=== PATIENT | female | born 1955 ===

== ENCOUNTER 2016-12-22 09:00 | Day surgery (SDC) | payer MEDICARE, OTHER ==
[2016-12-15 09:20] VITALS: BMI 23.4
[2016-12-22] MEDS ORDERED: Lactated Ringer's 1,000 ML IV ONE ×2 (09:50→13:30)
[2016-12-22] MEDS ORDERED: Propofol 10 mg/ml Inj (20 ML) ONE (11:26)
[2016-12-22] MEDS ORDERED: Rocuronium 10 mg/ml (5 ml) ONE (11:27)
[2016-12-22] MEDS ORDERED: Succinylcholine 200 mg/10 ml Inj IV ONE (11:27)
[2016-12-22] MEDS ORDERED: Midazolam 2 MG/2 ML VIAL ONE (11:27)
[2016-12-22] MEDS ORDERED: ePHEDrine 50 mg/ml Inj ONE (11:31)
[2016-12-22] MEDS ORDERED: Neostigmine Methylsulfate 2 MG/2 ML ML IV ONE (12:37)
[2016-12-22] MEDS ORDERED: Oxycodone/Acetaminophen 5/325 mg Tab PO PRN (13:26)
--- NOTE | 2016-12-22 13:26 | PCM.SURG1 ---
Surgeon's Initial Post Op Note - Surgeon's Notes Surgeon: Dr. Morris Alteration Specialist: Dr. Hayes PGY-2, Dr. Lincoln PGY-1, DPM Type of Anesthesia: General Endo Pre-Operative Diagnosis: Symptomatic cholelithiasis Operative Findings: Cholelithiasis Post-Operative Diagnosis: Symptomatic cholelithiasis Operation Performed: Laparoscopic cholecystectomy Specimen/Specimens Removed: gallbladder Estimated Blood Loss: EBL {In ML}: 20 Blood Products Given: N/A Drains Used: No Drains Post-Op Condition: Good Date of Surgery/Procedure: 12/22/16 Time of Surgery/Procedure: 13:25
[2016-12-22] MEDS: HYDROmorphone 0.5 mg/0.5 ml ISec IVP PRN ×4 (13:30→14:06)
--- NOTE | 2016-12-22 13:30 | CP.SDSHP ---
Same Day Surgery H & P - History Proposed Procedure: Laparoscopic cholecystectomy Pre-Op Diagnosis: Symptomatic cholelithiasis - Previous Medical/Surgical History Endocrine/Metabolic: Renal Disease Misc: Other (HIV, depression, anxiety) Previous Surgical History: left foot bunionectomy, left ear surgery - Allergies Allergies: Allergies aspirin Allergy (Verified 06/28/16 13:01) RASH - Physical Exam Vital Signs: Vital Signs 12/22/16 12/22/16 09:32 09:35 Temperature 97.9 F Pulse Rate 59 L 54 L Respiratory 20 Rate Blood Pressure 115/68 O2 Sat by Pulse 97 Oximetry Mental Status: Alert & Oriented x3 Neuro: WNL Heart: WNL Lungs: WNL GI: WNL - {Optional Preform as Required} Abdomen: WNL Integument: WNL - Impression Impression: Cholelithiasis Pt. Evaluated Today:Candidate for Anesthesia & Procedure: Yes - Date & Time Date: 12/22/16 Time: 11:00 Short Stay Discharge - Short Stay Discharge Admitting Diagnosis/Reason for Visit: K80.2 Disposition: HOME/ ROUTINE Referrals: Car Chan MD [Primary Care Provider] - Follow-up: Please follow up with Dr. Morris in 1 week, call to make appointment Instructions: Laparoscopic Cholecystectomy (DC) Additional Instructions (Diet, Activity): You may resume regular diet Avoid heavy lifting for 4 weeks You may shower 48 hours after your surgery but do not take a bath or swim You may remove band aids in 48 hours Leave steri strips in place, they will fall off on their own over time Please follow up with Dr. Morris, call to make appointment
[2016-12-22 14:31] VITALS: RESP 18
--- NOTE | 2016-12-22 15:02 | OP ---
PROCEDURE DATE: 12/22/2016 SURGEON: Dr. Morris. SEARCH MARKETING SPECIALIST: Dr. Hayes and Dr. Lincoln. ANESTHESIA: General, Dr. Poole. PREOPERATIVE DIAGNOSIS: Cholelithiasis. POSTOPERATIVE DIAGNOSIS: Cholelithiasis. PROCEDURE: Laparoscopic cholecystectomy. DESCRIPTION OF OPERATION: With the patient in the supine position under adequate general anesthesia, the abdomen was prepped and draped in the usual sterile manner. Veress needle puncture was performed at the umbilicus with insufflation to 15 cm water pressure of CO2 and a 10 mm laparoscopic trocar was inserted via an infraumbilical incision. Under direct vision, additional trocars were inserted in the epigastrium and right costal margin. The gallbladder was visualized. It was not acutely inflamed. The gallbladder fundus was grasped and elevated. The infundibulum was grasped and retracted laterally. The cystic duct was identified and dissected down toward the junction with the common bile duct. The cystic duct was triply clipped and divided closer to the gallbladder. The cystic artery was similarly identified and dissected. Cystic artery was triply clipped and divided and the gallbladder was dissected free of the liver bed using electrocautery. The liver bed was inspected for hemostasis and the dissection was completed. The gallbladder was placed in a specimen retrieval bag and removed via the umbilical port site. The right upper quadrant was irrigated and suctioned. The pneumoperitoneum was released and the trocars were removed. The umbilical port site was closed with a [id number] fascial suture of 0 Vicryl. All incisions were closed with 4-0 Monocryl subcuticular sutures and Steri-Strips. Dry sterile dressings were applied. The patient tolerated the procedure well and transferred to recovery room in stable condition. Estimated blood loss for the procedure was 20 mL. Felix Morris MD cc: [id number] TT: 12/22/2016 15:01:48 lisa HERNANDEZ
[2016-12-22 17:17] VITALS: BP 102/58; PULSE 61; TEMP 98; O2SAT 98
== END 2016-12-22 18:00 | disposition home or self-care (01) ==
LOC: H.OPSURG 09:00
PROVIDERS: ATTEND Specialist
DX: K80.10 Calculus of gallbladder with chronic cholecystitis without obstruction (principal); B20 Human immunodeficiency virus [HIV] disease; F41.9 Anxiety disorder, unspecified; F32.9 Major depressive disorder, single episode, unspecified; Z88.6 Allergy status to analgesic agent
CPT/HCPCS: 47562; 88304; J0330; J0690; J1170; J2001; J2250; J2405; J2704; J2710; J3010; J7120